=== PATIENT | female | born 1985 | race Caucasian/White ===

== ENCOUNTER 2017-03-04 09:54 | Inpatient (IN) | payer MEDICAID ==
[~2017-03-04] VITALS: Ht 172.7 cm; Wt 90.0 kg
[2017-03-04] VITALS (10 sets, daily range): BP systolic 108–126; BP diastolic 65–73; PULSE 50–64; RESP 16–20; TEMP 97.7–98.3; O2SAT 97–100
[~2017-03-04 09:54] MED LIST: PREN1TAB73 PO
[2017-03-04] MEDS ORDERED: LR 1,000 ML IV PRN (09:56)
[2017-03-04] MEDS ORDERED: FAMOTIDINE 20mg IVPB 50 ML IV ONE (10:00)
[2017-03-04] MEDS ORDERED: NOZIN NASAL SWAB NS PRN (10:00)
[2017-03-04] MEDS ORDERED: CITRIC ACID/SODIUM CITRATE 30 ML PO ONE (10:00)
[2017-03-04] MEDS ORDERED: LIDOCAINE 1% (10mg/ml) 2ml SDV ID PRN (10:00)
[2017-03-04] MEDS ORDERED: CLINDAMYCIN 600mg IVPB 50 ML IV ONE (10:00)
[2017-03-04] MEDS ORDERED: GENTAMICIN 120 MG in NORMAL SALINE 100 ML IV ONE (10:00)
--- NOTE | 2017-03-04 10:35 | ANESOB ---
Epidural/ Date/Time DATE: 03/04/17 TIME: 10:33 Preop Diagnosis Procedure: Plan: Spinal Height: 5 ' 8 " Weight: 90kg BMI: kg/m2 Temperature: 98.3 Blood Pressure: 126/73 Heart Rate: 64 Respiratory Rate: 16 SaO2: 99 NPO since: Midnight G: P: Heart Rate: 130's Medications & Allergies Inpatient Medications Current Medications Medications (Trade) Dose Ordered Sig/Molly Start Time Stop Time Status Last Admin Dose Admin Lactated Ringer's (Lactated Ringers) 1,000 ml @ 150 mls/hr [id number] PRN 03/04/17 09:56 Lidocaine HCl (Xylocaine 1%) 0.2 mg PRN PRN 03/04/17 10:00 Multi-Ingredient Antiseptic (Nozin Nasal Swab) 3 each PREOP PRN 03/04/17 10:00 Pnv95/Ferrous Fumarate/FA ( Tablet) 1 Each Tablet, 1 TAB PO DAILY, ( Reported) Last Taken: on 03/04/17 0800 Coded Allergies: Penicillins (Verified Allergy, Unknown, HIVES, 03/03/17) acetaminophen (Verified Allergy, Unknown, NAUSEA & VOMITING, 03/03/17) oxycodone (Verified Allergy, Unknown, NAUSEA & VOMITING, 03/03/17) Medical/Surgical History Anesthesia PMH: Denies: Anesthesia Reactions (NO AIRWAY ISSUES, SHAKING), Cancer, Clotting Problems, Glaucoma, Malignant Hyperthermia, Renal Disease Smoking Status: Current every day smoker # of Packs/Tins per Day: 1 # of Years: 12 Does patient use chewing tobac: No Second Hand Exposure: No Substance Use Type: does not use Alcohol Intake: none HX of Last Menstrual Period: MAY 2016 Anesthesia Adverse Reactions: FOUND none Family Hx of Anesthesia Advers: none Hx of Motion Sickness: No Complications During : No Pertinent Findings EKG Rhythm: Sinus Rhythm Physical Exam Respiratory: Lungs clear Cardiovascular: Regular rate, rhythm Airway Assessment Mallampati Score: II TMD: 3 Fingerbreadths Neck Extension: Good Overall Assessment: May Be Diff Intubation, Other (overbite correction) ASA: 2 Discussion Discussed risks/options/alternatives of anesthesia. Patient consents. Nursing pain assessment noted. Present for Discussion: Present: Spouse Attestation Statement Prior to the delivery of any anesthetic medication, I examined the patient, developed the plan, obtained the patient's consent and discussed the risk and benefits of the procedure with the patient/guardian. If the note happens to be signed after anesthesia start time, it is only due to providing efficient care of the patient and documenting at a time when the computer is available. FATIMAH PAULINO AERIAL CROP DUSTER Mar 04, 2017 10:35
[2017-03-04 10:50] LABS: BASOPHILS % (AUTO) 0.3 % (0-2); EOSINOPHILS # (AUTO) 0.2 T/MM3 (0-0.5); EOSINOPHILS % (AUTO) 1.1 % (0-4); HGB - HEMOGLOBIN 12.9 GM/DL (12-16); IMMATURE GRANULOCYTE # (AUTO) 0.14 T/MM3 (0.00-0.03); LYMPHOCYTES # (AUTO) 2.4 T/MM3 (1-4.8); LYMPHOCYTES % (AUTO) 17.3 % (23-45); MEAN CORPUSCULAR HGB 29.9 UUG (26-34); MEAN CORPUSCULAR HGB CONC(MCHC 33.1 GM/DL (31-37); MEAN CORPUSCULAR VOLUME 90.5 UM3 (80-100); MEAN PLATELET VOLUME 9.9 UM3 (9.4-12.4); MONOCYTES # (AUTO) 0.8 T/MM3 (0-0.8); MONOCYTES % (AUTO) 5.7 % (0-9.0); NEUTROPHILS #(AUTO)-ABSOLUTE 10.3 T/MM3 (1.8-7.7); NEUTROPHILS % (AUTO) 74.6 % (33-66); RED BLOOD COUNT 4.31 M/MM3 (4.00-5.20); WBC - WHITE BLOOD COUNT 13.8 T/MM3 (4.5-11.0)
[2017-03-04] MEDS ORDERED: ONDANSETRON 4mg/2ml INJECTION ONE (11:41)
[2017-03-04] MEDS ORDERED: MORPHINE SULFATE PF 5mg/10ml VL (DURAMORPH) ONE (11:42)
[2017-03-04] MEDS ORDERED: FENTANYL 100mcg/2ml INJECTION ONE (11:42)
[2017-03-04] MEDS ORDERED: NALBUPHINE 10mg/ml INJECTION IV PRN (13:15)
[2017-03-04] MEDS ORDERED: DiphenhydrAMINE 50 MG/ML INJECTION IV PRN (13:15)
[2017-03-04] MEDS ORDERED: ONDANSETRON 4mg/2ml INJECTION IV PRN (13:15)
[2017-03-04] MEDS ORDERED: NALOXONE 0.4mg/ml INJECTION IV PRN (13:15)
[2017-03-04] MEDS ORDERED: OXYTOCIN 30 UNIT in D5LR 500 ML IV SCH (13:17)
[2017-03-04] MEDS ORDERED: D5LR 1,000 ML IV SCH (13:17)
[2017-03-04] MEDS ORDERED: MILK OF MAGNESIA 30 ML SUSP PO PRN (13:30)
[2017-03-04] MEDS ORDERED: ACETAMINOPHEN 500 MG TABLET PO PRN (13:30)
[2017-03-04] MEDS ORDERED: DiphenhydrAMINE 25 MG CAPSULE PO PRN (13:30)
[2017-03-04] MEDS ORDERED: CALCIUM CARBONATE 500mg Chewable TAB PO PRN (13:30)
[2017-03-04] MEDS ORDERED: HYDROCORTISONE 2.5% CREAM 30 GM RECTALLY PRN (13:30)
--- NOTE | 2017-03-04 15:25 | ANESPO ---
Post-Op Note Date 03/04/17 Time: 15:23 Status Pt Participated in Evaluation: Pt participated in person Vital Signs Date Time Temp Pulse Resp B/P Pulse Ox O2 Delivery O2 Flow Rate FiO2 03/04/17 12:46 187 97 Room Air 03/04/17 10:55 98.3 16 126/73 Respiratory Function: Airway patent, Regular respirations Cardiovascular Function: Regular pulse Mental Status: Alert/oriented Pain Level Intensity: 2 Hydration: Taking po fluids Complications during Recovery None apparent Follow-Up Instructions Instructions Per Surgeon DIANA WOODARD CRNA Mar 04, 2017 15:25
[2017-03-04] MEDS: HYDROCODONE/APAP 5 mg/325 mg TABLET PO PRN ×2 (15:37→20:02)
[2017-03-04] MEDS: SIMETHICONE 80 MG CHEWABLE TABLET PO CHEW SCH ×2 (17:35→22:14)
[2017-03-04] MEDS: IBUPROFEN 800 MG TABLET PO PRN (17:35)
--- NOTE | 2017-03-04 17:35 | PNPDOC ---
Progress Note PPD0 Rubella: Immune GBS: Positive Blood Type:O pos Subjective 03/04/17 Lochia: Minimal Pain: Controlled Voiding: Box still in Place Nausea and Vomiting: No Nausea/Vomiting Objective Vital Signs Date Time Temp Pulse Resp B/P Pulse Ox O2 Delivery O2 Flow Rate FiO2 03/04/17 16:11 16 100 03/04/17 16:11 52 112/67 Room Air 03/04/17 10:55 98.3 Urine Output: Good General: Alert and Oriented Abdomen: Fundus Firm, Non-tender, Soft Incision: Clean/Dry/Intact, No Erythema Edema: None Assessment SP, Repeat C/S Plan Routine Care, Continue PNV JING US MD Mar 04, 2017 17:35
--- NOTE | 2017-03-04 17:35 | OPNOTEPD ---
Operative Note Date of Operation Date of Operation: 03/04/17 General : 2 Para: 1 Gestation (Weeks): 39 Gestation (Days): 4 Preoperative Diagnosis Previous section Postoperative Diagnosis Same as preoperative dx Procedure Repeat, Low-transverse Surgeon Anila Us MD Pipelines Manager Carmelo Tran, Surg. Assist Anesthesia Anesthesia Provider: Jono Merlos CRNA Complications No Complications: No complications Estimated Blood Loss 900 cc Findings viable female, normal uterus, normal adenexa APGARS Weight 3008 grams [place] Name Lisa Mccormack Indications Prior C/S at term gestation Description of Procedure The patient was taken to the operating room where adequate anesthesia as described above was obtained. A Pfannenstiel skin incision was made with the scalpel and carried down to the fascia. The fascia was incised with the scalpel and this incision was extended laterally with Puckett scissors. The rectus muscles were in the midline. The peritoneum was entered and incised superiorly and inferiorly taking care to avoid the bowel and bladder. A bladder blade was inserted and a bladder flap was created. A low transverse uterine incision was made as described above and the infant was delivered in the cephalic position. Mouth and nares were bulb suctioned, the cord was clamped and cut, and the infant was handed to the awaiting nursing staff. The placenta was delivered and the uterine cavity examined. The uterine incision was closed in a running-lock fashion with 0-monocryl suture. Hemostasis was confirmed. The bladder flap was then reapproximated with 2-0 chromic. The gutters were cleared of blood clots. Attention was turned to the peritoneal layer which was then closed with a running stitch of 2-0 vicryl. The fascia was closed with 0-vicryl suture and the subcutaneous tissue was reapproximated with 2-0 vicryl suture. The skin was closed with 4-0 monocryl in subcuticular fashion and a sterile dressing was applied. The patient was subsequently taken to the recovery room in satisfactory condition. Needle, sponge, and instrument counts were correct. There were no surgical or anesthetic complications. Mother and infant are doing well at this time. ANILA US MD Mar 04, 2017 13:20
[2017-03-05] VITALS (8 sets, daily range): BP systolic 105–131; BP diastolic 58–73; PULSE 52–65; RESP 14–20; TEMP 97.5–98.4; O2SAT 96–100
[2017-03-05] MEDS: IBUPROFEN 800 MG TABLET PO PRN ×3 (01:28→17:37)
[2017-03-05] MEDS: HYDROCODONE/APAP 5 mg/325 mg TABLET PO PRN ×5 (01:28→20:23)
--- NOTE | 2017-03-05 01:43 | NUR ---
Chart Check 24 hour chart check completed
--- NOTE | 2017-03-05 02:47 | NUR ---
SHIFT SUMMARY: VSS, pt's pain controlled with PO Motrin, [place] 5, and Mylicon. Fundus firm at umbilicus, scant to light lochia noted. Abdm incision dry and intact. Abdm binder used for support. IV SL in pt's right wrist. Urinary alfredo to dependent drain, adequate urine output. Thigh high SCD's on and pumping bilaterally. Pt tolerating PO fluids and general diet. Pt has dangled and stood at bedside, no complications. RN provided pericare and changed peripad multiple times this shift. Pt has not held baby this shift and sent baby to the nursery at 1800. Pt states she was going to rest, PT has been awake most of the shift. Pt inquires on baby when RN in room. Pt informed RN that her 3yr old lives with her mother, pt didn't elaborate why. Obdulio and his family here at beginning of shift. Obdulio supportive of pt.
--- NOTE | 2017-03-05 03:53 | NUR ---
INITIAL SHIFT ASSESSMENT AWAKE IN BED WITH TV ON. DENIS DRAINING YELLOW URINE, ABOUT 250MLS IN BAG. IV SITE WITHOUT S/S OF COMPLICATION. RATES PAIN @ LEVEL 2 INTERMITTENT BURNING SENSATION ON RIGHT SIDE OF INCISION. DISCUSS PAIN MEDICATIONS. SHE STATES AT ABOUT EVERY 4 HOURS SHE CAN TELL THAT PAIN STARTS TO INCREASE. DISCUSS TAKING IBUPROFEN q 8 A FOUNDATION FOR PAIN RELIEF AND NORCO NEEDED. EXPRESSES DESIRE TO GET UP AND WALK. OFFER TO ASSISTANCE TO DO THAT NOW DECLINED. DRESSING CLEAN AND DRY. ABDOMINAL BINDER ON. NO LOCHIA VISUALIZED ON PAD AT THIS WITHOUT PATIENT MOVING FOR A MORE COMPLETE CHECK. PLAN OF CARE DISCUSSED. VITALS DUE AT APPROXIMATELY 0530. DENIES NEEDS AT THIS TIME. HOLDS BABY AT THIS TIME AND COMMENTS ON WHAT A GOOD BABY SHE IS.
[2017-03-05 05:40] LABS: HCT - HEMATOCRIT 37.9 % (36-46); HGB - HEMOGLOBIN 12.3 GM/DL (12-16); MEAN CORPUSCULAR HGB CONC(MCHC 32.5 GM/DL (31-37); MEAN CORPUSCULAR VOLUME 92.4 UM3 (80-100); MEAN PLATELET VOLUME 10.3 UM3 (9.4-12.4); RED BLOOD COUNT 4.1 M/MM3 (4.00-5.20); WBC - WHITE BLOOD COUNT 13.4 T/MM3 (4.5-11.0)
[2017-03-05] MEDS: DOCUSATE CALCIUM 240 MG CAPSULE PO SCH (05:44)
--- NOTE | 2017-03-05 08:36 | PNPDOC ---
Progress Note PPD1 Rubella: Immune GBS: Positive Blood Type:O pos Subjective 03/05/17 Lochia: Minimal Pain: Controlled Voiding: Alfredo still in Place Nausea and Vomiting: No Nausea/Vomiting Objective Vital Signs Date Time Temp Pulse Resp B/P Pulse Ox O2 Delivery O2 Flow Rate FiO2 03/05/17 05:49 16 99 03/05/17 05:46 98.4 57 105/62 Room Air Urine Output: Good General: Alert and Oriented Abdomen: Fundus Firm, Non-tender Incision: Clean/Dry/Intact, No Erythema Extremities: Non-tender Edema: None Assessment SP, Repeat C/S Plan Routine Care (remove alfredo catheter, remove dressing this AM) JING US MD Mar 05, 2017 08:36
[2017-03-05] MEDS: SIMETHICONE 80 MG CHEWABLE TABLET PO CHEW SCH ×4 (09:58→22:00)
--- NOTE | 2017-03-05 14:47 | NUR ---
CM THIS WORKER MET WITH PT IN ROOM. ALSO PRESENT WAS FOB. THIS WORKER INTRODUCED SELF AND ROLE OF CASE MANAGEMENT. PT AND FOB REPORTED THAT THEY HAVE ALL THAT IS NEEDED FOR BABY AT HOME TO INCLUDE CAR SEAT, CRIB, FORMULA, DIAPERS. MOTHER REPORTED THAT MATERNAL GRANDMOTHER IS ALSO LIVING IN [place] AND HELPS IF NEEDED. MOTHER IS PLANNING TO STAY HOME WITH BABY AT THIS TIME. FATHER IS EMPLOYED AND DENIED FINANCIAL NEEDS. THIS WORKER INQUIRED REGARDING OTHER CHILDREN. MOTHER REPORTED (GIRL AGE 3) THAT RESIDES WITH MATERNAL GRANDMOTHER. MOTHER REPORTED THAT SHE WAS LIVING WITH HER MOTHER AT THE TIME OF HER AND HAD "GONE THROUGH A ROUGH TIME." PT REPORTED THAT HER MOTHER HAS KEPT HER DAUGHTER. MOTHER DENIED ANY DCF INVOLVEMENT REGARDING THIS AND SEES HER DAUGHTER ON A DAILY BASIS. 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 PARENTS REPORT THAT THEY ARE ELIGIBLE FOR [facility] AND TRIED CALLING TODAY BUT THE [facility] OFFICE IS CLOSED ON WEDNESDAY. MOTHER REPORTED THAT SHE WOULD CALL ON WEDNESDAY. MOTHER REPORTED THAT THEY HAVE ENOUGH FORMULA AND CAN AFFORD THIS. PT DENIED NEEDS AT THIS TIME. IS PLANNING TO BE ADDED TO THE INSURANCE. NO CONCERNS AT THIS TIME. THIS WORKER PROVIDED CONTACT INFORMATION FOR FAMILY AND ENCOURAGED FAMILY TO CONTACT THIS WORKER WITH ANY NEEDS. UPDATE TO PRIMARY NURSE.
--- NOTE | 2017-03-05 15:15 | NUR ---
SHIFT SUMMARY VSS. FIRM FUNDUS AND SCANT LOCHIA. INCISION WELL APPROXIMATED AND OPEN TO AIR. IV D/C'D AND URINE CATH. REMOVED. PAIN CONTROLLED WITH IBUPROFEN 800MG AND NORCO 5/325MG.
[2017-03-06 00:59] VITALS: BP 124/71; PULSE 62; RESP 20; TEMP 97.9
[2017-03-06] MEDS: IBUPROFEN 800 MG TABLET PO PRN ×2 (01:00→10:39)
[2017-03-06] MEDS: HYDROCODONE/APAP 5 mg/325 mg TABLET PO PRN ×2 (01:01→05:56)
--- NOTE | 2017-03-06 01:16 | NUR ---
Chart Check 24 hour chart check completed
--- NOTE | 2017-03-06 02:32 | NUR ---
SHIFT SUMMARY: VSS, pt's pain controlled with PO Motrin, [place] 5, and Mylicon. Fundus firm at 1 below umbilicus, scant lochia noted. Incision RONNY, intact and w/o s/s of infection. Abdm binder off, Pt denies use for support. Pt up ad wenceslao and ambulated off unit with Obdulio this shift. Voiding and passing gas, showering and performing personal cares. Pt tolerating general diet and is excited about going home on Wednesday. Pt held and cared for baby first 1/2 of shift then sent baby to nursery. Pt states, "take advantage of the RNs tonight since we will be going home tomorrow". Pt inquires about baby's being when RN round, denies baby return to room when offered.
[2017-03-06 06:00] VITALS: BP 115/71; PULSE 58; RESP 16; TEMP 97.8; O2SAT 97
[2017-03-06] MEDS: SIMETHICONE 80 MG CHEWABLE TABLET PO CHEW SCH (09:04)
[2017-03-06] MEDS: DOCUSATE CALCIUM 240 MG CAPSULE PO SCH (09:04)
[2017-03-06 10:00] VITALS: BP 127/77; PULSE 70; RESP 14; TEMP 97.7; O2SAT 97
[2017-03-06] MEDS ORDERED: MEDROXYPROGESTERONE 150 MG/ML IM ONE (11:30)
--- NOTE | 2017-03-06 11:30 | PNPDOC ---
Progress Note PPD2 Rubella: Immune GBS: Positive Blood Type:O pos Subjective 03/06/17 Lochia: Minimal Pain: Controlled Voiding: Voiding Nausea and Vomiting: No Nausea/Vomiting Objective Vital Signs Date Time Temp Pulse Resp B/P Pulse Ox O2 Delivery O2 Flow Rate FiO2 03/06/17 10:00 97.7 70 14 127/77 97 Room Air General: Alert and Oriented Abdomen: Fundus Firm, Non-tender Incision: Clean/Dry/Intact, No Erythema Edema: None Assessment SP, Repeat C/S Plan Routine Care, Discharge Home (DMPA prior to discharge home), Continue PNV JING US MD Mar 06, 2017 11:30
[2017-03-06] MEDS ORDERED: DOCU-168 PO (11:33)
[2017-03-06] MEDS ORDERED: IBUP-1547 PO (11:33)
[2017-03-06] MEDS ORDERED: HYDR-4246 PO (11:33)
[2017-03-06 12:45] VITALS: BP 119/72; PULSE 64; RESP 14; TEMP 98.3; O2SAT 97
== END 2017-03-06 12:59 | disposition home or self-care (01) | DRG 766 ==
LOC: MC 09:54
PROVIDERS: ADMIT Obstetrics & Gynecology; ATTEND Obstetrics & Gynecology
PROC: 10D00Z1 Extraction of Products of Conception, Low, Open Approach (ICD-10-PCS; principal; 2017-03-04 12:14)
DX: O34.211 Maternal care for low transverse scar from previous cesarean delivery (principal); N85.8 Other specified noninflammatory disorders of uterus; O99.824 Streptococcus B carrier state complicating childbirth; O69.81X0 Labor and delivery complicated by cord around neck, without compression, not applicable or unspecified; O99.334 Smoking (tobacco) complicating childbirth; F17.200 Nicotine dependence, unspecified, uncomplicated; O99.344 Other mental disorders complicating childbirth; F43.10 Post-traumatic stress disorder, unspecified; F32.9 Major depressive disorder, single episode, unspecified; O99.02 Anemia complicating childbirth; D64.89 Other specified anemias; Z3A.39 39 weeks gestation of pregnancy; Z37.0 Single live birth
CPT/HCPCS: 36415; 85025; 85027; 86850; 86900; 86901; 99464